=== PATIENT | male | born 1945 | race Caucasian/White ===

== ENCOUNTER 2020-07-12 12:37 | Observation (INO) ==
[2020-07-12] MEDS ORDERED: NORMAL SALINE 1,000 ML IV ONE ×3 (12:55→15:25)
[2020-07-12 13:17] LABS: Hematocrit 36.2 % (42.0-52.0); Hemoglobin 11.6 gm/dL (13.5-18.0); Mean Cell Volume 92.1 fl (78-100); Mean Corpuscular Hemoglobin 29.5 pg (27-31); Mean Platelet Volume 10.9 fl (8-11.3); Platelet Count 129 K/mm3 (150-450); Red Blood Count 3.93 M/mm3 (4.7-6.0); Red Cell Distribution Width 14.6 % (11.5-14.0); White Blood Count 8.1 K/mm3 (4.0-10.5)
[2020-07-12 13:19] LABS: Total Cells Counted 100
[2020-07-12 13:33] LABS: Troponin I Less than 0.017 ng/mL (0.00-0.10)
[2020-07-12 13:35] LABS: ALT 66 U/L (19-67); AST 69 U/L (0-48); Alkaline Phosphatase * 472 U/L (50-170); Anion Gap 13.5 mmol/L (6.8-13.8); BUN/Creatinine Ratio 23.6 (9.0-21.6); Bilirubin, Total 0.8 mg/dL (0.0-1.1); Blood Urea Nitrogen 30 mg/dL (6-23); Ca. Corrected For Albumin 9.3 mg/dL (8.4-10.2); Calcium * 8.8 mg/dL (7.9-10.9); Carbon Dioxide 24.6 mmol/L (24-32.6); Chloride 98 mmol/L (97-106); Glucose * 170 mg/dL (70-110); Lipase 221 U/L (73-393); Magnesium 1.8 mg/dL (1.2-2.8); Potassium 4.1 mmol/L (3.4-4.6); Sodium 132 mmol/L (132-142); TSH * 3.248 uIU/mL (0.358-3.74); Total Protein 6.2 gm/dL (6.2-8.2)
[2020-07-12 13:48] LABS: Atypical (Reactive) Lymph 6 % (0-2); Band 17 % (0-2.0); Lymphocyte 10 % (20-51); Monocyte 2 % (0-9); Neutrophil 65 % (42-75); Neutrophil # 5.3 K/mm3 (1.3-6.0)
[2020-07-12 13:50] LABS: Anisocytosis 2+; Platelet Estimate Normal (NORMAL)
[2020-07-12 15:40] LABS: Urine Bilirubin 1 mg/dl (NEGATIVE); Urine Blood Negative /ul (NEGATIVE); Urine Ketone Negative (NEGATIVE); Urine Nitrite Negative (NEGATIVE); Urine Protein Negative (NEGATIVE); Urine Specific Gravity 1.025 SP.GR. (1.005-1.030); Urine Urobilinogen Normal (NORMAL); Urine pH 5.5 pH (5.0-7.0)
[2020-07-12 16:01] LABS: Urine Appearance Cloudy (CLEAR); Urine Color Dark Yellow
[2020-07-12 16:03] LABS: Urine Mucus Moderate - 2+; Urine RBC TRACE /hpf (0-5); Urine WBC 0-5 /hpf (0-5)
[2020-07-12 16:04] LABS: Urine Bacteria TRACE
--- NOTE | 2020-07-12 16:04 | ERNOTE ---
Medical Problem HPI - Narrative Date of Service: 07/12/20 - General Chief Complaint: General Assessment Time Seen by Provider: 07/12/20 12:43 Source: patient, family Exam Limitations: no limitations - Immun/Allergies/Home Medications Immunizations: IMMUNIZATION HX Immunizations Up to Date Yes History of Influenza Vaccine Yes Hx Pneumococcal Vaccination Yes Allergies/Adverse Reactions: Allergies No Known Allergies Allergy (Unverified 07/12/20 12:56) Home Medications: HOME MEDICATIONS ALPRAZolam [Xanax] 0.5 mg PO HS 07/12/20 [Last Taken Unknown] Atorvastatin Calcium 40 mg PO DAILY 07/12/20 [Last Taken Unknown] Chlorpromazine HCl 25 mg PO TID PRN 07/12/20 [Last Taken Unknown] Digoxin [Digitek] 250 mcg PO DAILY 07/12/20 [Last Taken Unknown] Fluorouracil [Adrucil] 500 mg IV PRN 07/12/20 [Last Taken Unknown] Furosemide [Lasix] 40 mg PO DAILY 07/12/20 [Last Taken Unknown] Irinotecan HCl [Camptosar] 100 mg IV PRN 07/12/20 [Last Taken Unknown] Lisinopril [Zestril] 5 mg PO DAILY 07/12/20 [Last Taken Unknown] Metoprolol Tartrate [Lopressor] 25 mg PO BID 07/12/20 [Last Taken Unknown] Oxaliplatin [Eloxatin] 100 mg IV PRN 07/12/20 [Last Taken Unknown] Potassium Chloride [Klor-Con 10] 10 meq PO BID 07/12/20 [Last Taken Unknown] metFORMIN HCL [Metformin HCl] 500 mg PO BID 07/12/20 [Last Taken Unknown] - History of Present History Narrative: Patient presents to the ED for dehydration, low BP and an episode of unresponsiveness. He has metastatic pancreatic cancer. Treated last week at [facility] with chemotherapy. He had low BP at the cancer center but that improved. He hasn't been eating or drinking. He is nauseated. He was seated today and his head went back and he had an unresponive episode, no clear seizure activity. He then woke up. They called [facility] and were directed to the hospital. He denies pain right now. Is hypotensive. No CP or SOB., Timing: constant, getting worse Severity: severe Modifying Factors - (Improves): Present: other - nothing Modifying Factors - (Worsens): Present: other - nothing Review of Systems - Review of Systems Constitutional: Absent: fever EYE: Present: no symptoms reported ENT: Absent: sore throat Respiratory: Absent: shortness of breath Cardiology: Absent: chest pain Gastrointestinal/Abdominal: Present: See HPI Genitourinary: Present: See HPI All Other Systems: All systems neg except as marked Medical History (Last Reviewed 07/12/20 @ 15:57 by Yeison Perez MD) CHF (congestive heart failure) Cancer determined by pancreatic biopsy Cancer determined by pancreatic biopsy Diabetes Hypertension Normal colonoscopy Pancreatic cancer Surgical History: Surgical History (Last Reviewed 07/12/20 @ 15:57 by Yeison Perez MD) History of liver biopsy Pacemaker Family History: Family History (Last Reviewed 07/12/20 @ 15:57 by Yeison Perez MD) Brother Bone cancer Father Myocardial infarction Social History: (Last Reviewed 07/12/20 @ 15:57 by Yeison Perez MD) Social History: lives independently: Yes household members: spouse Tobacco: Smoking Status: Never smoker Alcohol: alcohol intake: former Alcohol type: beer alcohol intake frequency: holiday/special occasion Physical Exam - Physical Exam General Appearance: Present: alert, no apparent distress Head Exam: Present: normal inspection, no evidence of injury Eye Exam: Normal inspection: bilateral, PERRL: bilateral Ears, Nose, Throat: Present: normal ENT inspection Neck: Present: normal inspection Respiratory: Present: no respiratory distress, normal breath sounds, no accessory muscle use, lungs clear Cardiovascular/Chest: Present: regular rate, rhythm, normal peripheral pulses Gastrointestinal/Abdominal: Present: normal bowel sounds, nontender, soft Back Exam: Present: normal range of motion Extremity Exam: Present: normal inspection, normal range of motion Neurological Exam: Present: alert, no motor/sensory deficits, signals analyst II-XII nml as tested. Absent: motor weakness Skin Exam: Present: normal color, warm/dry Progress - Results and Orders Patient's Lab Results:: I have reviewed the patient's lab results. - Vital Signs Patient's Vital Signs:: I have reviewed the patient's vital signs. Vital Signs: Vital Signs 07/12/20 12:38 07/12/20 13:12 07/12/20 13:15 Temperature 36.3 C Pulse Rate 113 H 104 H 99 Respiratory Rate 16 22 H 17 Blood Pressure 61/37 L 81/50 L 77/52 L O2 Sat by Pulse Oximetry 98 96 95 07/12/20 13:26 07/12/20 13:37 07/12/20 14:15 Temperature Pulse Rate 120 H 101 H 97 Respiratory Rate 22 H 19 17 Blood Pressure 77/50 L 76/47 L 79/51 L O2 Sat by Pulse Oximetry 96 95 95 07/12/20 14:30 07/12/20 14:45 07/12/20 15:00 Temperature Pulse Rate 92 85 92 Respiratory Rate 17 16 12 Blood Pressure 95/57 96/56 100/62 O2 Sat by Pulse Oximetry 95 96 95 07/12/20 15:15 07/12/20 15:25 07/12/20 15:30 Temperature Pulse Rate 93 86 78 Respiratory Rate 14 12 Blood Pressure 92/56 109/67 O2 Sat by Pulse Oximetry 96 97 - EKG EKG #1 EKG read: Interp. by me EKG Comments: Paced rhythm, rate 102. Non-specific, no STEMI noted - X-Ray X-Ray #1 X-Ray: chest Interpretation: Interp. by me X-ray Comments: I personally reviewed CXR image as well as official radiology report - CT/Ultrasound CT/Ultrasound Narrative: I reviewed official radiology report for head CT. - Progress/Reassessment Chief Complaint: General Assessment Progress Note-Subjective: 07/12/20 16:01 2L NS given, still orthorstatic. Given this he will need hospitalization. I spoke with Dr Zaidi and discussed vitals and labs, she will admit. patient and family agreeable. Departure Clinical Impression: Dehydration, Hypotension, Orthostasis, Pancreatic cancer - Departure Disposition: Still a patient Condition: Fair Referrals: Salma Cadet DO [Primary Care Provider] -
[2020-07-12] MEDS ORDERED: NORMAL SALINE 1,000 ML IV PRN (18:02)
[2020-07-12] MEDS ORDERED: ONDANSETRON HCL 8 MG TABLET PO PRN (18:03)
[2020-07-12] MEDS ORDERED: PROCHLORPERAZINE MALEATE 10 MG TABLET PO PRN (18:03)
[2020-07-12] MEDS ORDERED: CHLORPROMAZINE HCL 50 MG PO PRN (18:03)
--- NOTE | 2020-07-12 18:17 | PN ---
Subjective - Date and Time Seen Date: 07/12/20 Time: 16:30 Subjective Narrative: Patient with a PMHx of atrial fibrillation with pacemaker was recently diagnosed with metastatic pancreatic cancer. He was losing weight, 30 pounds over about 4-5 months) and had abnormal liver labs, and subsequent imaging revealed pancreatic cancer with mets to the liver and lung. He started chemo treatment through a cancer treatment center in [place] last week. He was at home eating breakfast, and had an episode of unresponsiveness and jerking of the extremities according to his . He does not remember the event. He was able to fausto up and down stairs yesterday. He had problems with dehydration and was told to increase fluid intake, but has not been able to do so. In the ED, he was hypotensive with systolic BP in the 60's. Lactate was initially 4.3. No significant abnormalities on CBC, aside from mild anemia with hemoglobin of 11.6 and mild thrombocytopenia with platelets of 126. Normal creatinine of 1.27, no signs of infection on urine, and COVID was negative. BP improved after 2L NS. He is admitted for gentle hydration and monitoring for resolution of symptoms. Objective - Review of Systems Generalized/Overall Review: Reports: Weight loss Respiratory: Denies: Shortness of Breath Cardiac: Denies: Chest Pain, Edema Abdominal: Reports: Other - hiccups. Denies: Abdominal Pain Genitourinary Symptoms: Reports: No Symptoms Reported - Vitals Vitals: Last Vital Signs Temp 36.5 C 07/12/20 17:28 Pulse 84 07/12/20 17:28 Resp 12 07/12/20 17:28 BP 118/64 07/12/20 17:28 Pulse Ox 96 07/12/20 17:28 - Abnormal Lab Findings Abnormal Lab Findings: Abnormal Lab Results 07/12/20 07/12/20 07/12/20 Range/Units 13:07 13:07 13:07 RBC 3.93 L (4.7-6.0) M/mm3 Hgb 11.6 L (13.5-18.0) gm/dL Hct 36.2 L (42.0-52.0) % RDW 14.6 H (11.5-14.0) % Plt Count 129 L (150-450) K/mm3 Band Neuts % (Manual) 17 H (0-2.0) % Lymphocytes % (Manual) 10 L (20-51) % Lymphocytes # (Manual) 0.8 L (1.5-3.5) k/mm3 Atypic/Reactive Lymphs 6 H (0-2) % BUN 30 H (6-23) mg/dL Est GFR (Non-Af Amer) 59 L D (60-130) mL/min BUN/Creatinine Ratio 23.6 H (9.0-21.6) Random Glucose 170 H (70-110) mg/dL Lactic Acid, Venous 4.3 H* (0.4-2.0) mmol/L AST 69 H (0-48) U/L Alkaline Phosphatase 472 H (50-170) U/L Albumin 3.0 L (3.4-5.0) gm/dl Urine Bilirubin (NEGATIVE) mg/dl Hyaline Casts (NONE) /LPF Urine Mucus (NONE) 07/12/20 07/12/20 Range/Units 15:27 15:50 RBC (4.7-6.0) M/mm3 Hgb (13.5-18.0) gm/dL Hct (42.0-52.0) % RDW (11.5-14.0) % Plt Count (150-450) K/mm3 Band Neuts % (Manual) (0-2.0) % Lymphocytes % (Manual) (20-51) % Lymphocytes # (Manual) (1.5-3.5) k/mm3 Atypic/Reactive Lymphs (0-2) % BUN (6-23) mg/dL Est GFR (Non-Af Amer) (60-130) mL/min BUN/Creatinine Ratio (9.0-21.6) Random Glucose (70-110) mg/dL Lactic Acid, Venous 2.6 H* (0.4-2.0) mmol/L AST (0-48) U/L Alkaline Phosphatase (50-170) U/L Albumin (3.4-5.0) gm/dl Urine Bilirubin 1 H (NEGATIVE) mg/dl Hyaline Casts 5-10 H (NONE) /LPF Urine Mucus Moderate - 2+ H (NONE) - Exam Constitutional: Present: Alert, Cooperative, No distress Respiratory: Present: no respiratory distress Cardiovascular/Chest: Present: regular rate, rhythm Eye contact: Present: cooperative, good eye contact Assessment/Plan Plan Narrative: BP is improving with fluids. His presentation is felt to be secondary to dehydration. Negative head CT. He received 3 L NS in the ED, and will give one additional L at maintenance rate tonight. His reports he was told to increase his fluid intake, because he also needed fluids for hypotension prior to his chemo treatment. He hasn't been able to follow through with drinking more fluids. Will ask PT to evaluate in the morning, and if he is comfortable ambulating and does not have recurrent hypotension, will DC tomorrow. 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 His reports his cancer is stage IV. Jasson is not sure of his prognosis, and was in denial that his weight loss could have been due to cancer. She is trying to keep him positive, and is not sure that he would want to know if his prognosis was poor. When asked about his code status, he was not sure, and stated he will need to discuss that with family. He just started chemo treatment last week for his stage IV pancreatic cancer. 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 Centeno recently DC'd warfarin, and reported if his health declined, may also DC digoxin. (5) Dehydration Problem: Acute (6) Hypertension Problem: Chronic Narrative: will hold antihypertensives until BP is consistently greater than 140/90
[2020-07-12] MEDS: metFORMIN HCL 500 MG TABLET PO SCH (20:10)
[2020-07-12] MEDS ORDERED: ALPRAZolam 0.5 MG TABLET PO SCH (21:00)
[2020-07-13 06:38] LABS: Hematocrit 30.2 % (42.0-52.0); Hemoglobin 9.9 gm/dL (13.5-18.0); Mean Cell Volume 90.1 fl (78-100); Mean Corpuscular Hemoglobin 29.6 pg (27-31); Mean Corpuscular Hgb Conc 32.8 g/dl (32-36); Mean Platelet Volume 10.1 fl (8-11.3); Platelet Count 101 K/mm3 (150-450); Red Blood Count 3.35 M/mm3 (4.7-6.0); Red Cell Distribution Width 14.5 % (11.5-14.0); White Blood Count 5.4 K/mm3 (4.0-10.5)
[2020-07-13 06:43] LABS: Albumin * 2.5 gm/dl (3.4-5.0); Anion Gap 16.8 mmol/L (6.8-13.8); BUN/Creatinine Ratio 25.3 (9.0-21.6); Bilirubin, Total 0.8 mg/dL (0.0-1.1); Ca. Corrected For Albumin 9.1 mg/dL (8.4-10.2); Calcium * 8.2 mg/dL (7.9-10.9); Potassium 3.8 mmol/L (3.4-4.6); Total Protein 5.3 gm/dL (6.2-8.2)
[2020-07-13 06:44] LABS: Total Cells Counted 100
[2020-07-13 07:33] LABS: Atypical (Reactive) Lymph 2 % (0-2); Eosinophil 2 % (0-3); Immature Granulocyte 4 (0-1); Lymphocyte 17 % (20-51); Monocyte 4 % (0-9)
[2020-07-13 07:34] LABS: Anisocytosis 1+; Band 7 % (0-2.0); Neutrophil 64 % (42-75); Neutrophil # 3.5 K/mm3 (1.3-6.0); Toxic Granulation Trace
--- NOTE | 2020-07-13 08:15 | HP ---
Chief Complaint - Chief Complaint Date of Service: 07/13/20 Time of Service: 08:10 Chief Complaint: seizure like activity History of Present Illness: Patient with a PMHx of atrial fibrillation with pacemaker was recently diagnosed with metastatic pancreatic cancer. He was losing weight, 30 pounds over about 4-5 months) and had abnormal liver labs, and subsequent imaging revealed pancreatic cancer with mets to the liver and lung. He started chemo treatment through a cancer treatment center in [place] last week. He was at home eating breakfast, and had an episode of unresponsiveness and jerking of the extremities according to his . He does not remember the event. He was able to fausto up and down stairs yesterday. He had problems with dehydration and was told to increase fluid intake, but has not been able to do so. In the ED, he was hypotensive with systolic BP in the 60's. Lactate was initially 4.3. No significant abnormalities on CBC, aside from mild anemia with hemoglobin of 11.6 and mild thrombocytopenia with platelets of 126. Normal creatinine of 1.27, no signs of infection on urine, and COVID was negative. BP improved after 2L NS. He is admitted for gentle hydration and monitoring for resolution of symptoms. Medical History (Last Reviewed 07/12/20 @ 15:57 by Yeison Perez MD) CHF (congestive heart failure) Cancer determined by pancreatic biopsy Cancer determined by pancreatic biopsy Diabetes Hypertension Normal colonoscopy Pancreatic cancer Surgical History: Surgical History (Last Reviewed 07/12/20 @ 15:57 by Yeison Perez MD) History of liver biopsy Pacemaker Family History: Family History (Last Reviewed 07/12/20 @ 15:57 by Yeison Perez MD) Brother Bone cancer Father Myocardial infarction Social History: (Last Reviewed 07/12/20 @ 15:57 by Yeison Perez MD) Social History: lives independently: Yes household members: spouse Tobacco: Smoking Status: Never smoker Alcohol: alcohol intake: former Alcohol type: beer alcohol intake frequency: holiday/special occasion Review Of Systems (GEN) - Review of Systems Generalized/Overall Review: Present: Weakness, Weight loss Respiratory: Absent: Shortness of Breath Cardiac: Absent: Chest Pain, Edema Abdominal: Present: Other - hiccups. Absent: Abdominal Pain Genitourinary: Present: No Symptoms Reported Immunizations: IMMUNIZATION HX Immunizations Up to Date Yes History of Influenza Vaccine Yes Hx Pneumococcal Vaccination Yes Allergies/Adverse Reactions: Allergies Allergy/AdvReac Type Severity Reaction Status Date / Time No Known Allergies Allergy Unverified 07/12/20 12:56 Home Medications: HOME MEDICATIONS ALPRAZolam [Xanax] 0.5 mg PO HS 07/12/20 [Last Taken Unknown] Atorvastatin Calcium 40 mg PO DAILY 07/12/20 [Last Taken Unknown] Chlorpromazine HCl 25 mg PO TID PRN 07/12/20 [Last Taken Unknown] Digoxin [Digitek] 250 mcg PO DAILY 07/12/20 [Last Taken Unknown] Fluorouracil [Adrucil] 500 mg IV PRN 07/12/20 [Last Taken Unknown] Furosemide [Lasix] 40 mg PO DAILY 07/12/20 [Last Taken Unknown] Irinotecan HCl [Camptosar] 100 mg IV PRN 07/12/20 [Last Taken Unknown] Lisinopril [Zestril] 5 mg PO DAILY 07/12/20 [Last Taken Unknown] Metoprolol Tartrate [Lopressor] 25 mg PO BID 07/12/20 [Last Taken Unknown] Ondansetron HCl [Zofran] 8 mg PO TID PRN 07/12/20 [Last Taken Unknown] Oxaliplatin [Eloxatin] 100 mg IV PRN 07/12/20 [Last Taken Unknown] Potassium Chloride [Klor-Con 10] 10 meq PO BID 07/12/20 [Last Taken Unknown] Prochlorperazine Maleate [Compazine] 10 mg PO QID PRN 07/12/20 [Last Taken Unknown] metFORMIN HCL [Metformin HCl] 500 mg PO BID 07/12/20 [Last Taken Unknown] Exam - Exam Vital Signs: Vital Signs - Last Taken Temp 37.2 C 07/13/20 06:43 Pulse 115 H 07/13/20 07:44 Resp 12 07/13/20 06:43 BP 116/71 07/13/20 06:43 Pulse Ox 96 07/13/20 06:43 Constitutional: Present: Alert, Cooperative, No distress ENT Exam: Present: hard of hearing Respiratory: Present: no respiratory distress Cardiovascular/Chest: Present: regular rate, rhythm Eye contact: Present: cooperative, good eye contact Diagnostic Studies: Abnormal Lab Results 07/12/20 07/12/20 07/12/20 Range/Units 13:07 13:07 13:07 RBC 3.93 L (4.7-6.0) M/mm3 Hgb 11.6 L (13.5-18.0) gm/dL Hct 36.2 L (42.0-52.0) % RDW 14.6 H (11.5-14.0) % Plt Count 129 L (150-450) K/mm3 Band Neuts % (Manual) 17 H (0-2.0) % Lymphocytes % (Manual) 10 L (20-51) % Immature Granulocytes (0-1) Lymphocytes # (Manual) 0.8 L (1.5-3.5) k/mm3 Atypic/Reactive Lymphs 6 H (0-2) % Anion Gap (6.8-13.8) mmol/L BUN 30 H (6-23) mg/dL Est GFR (Non-Af Amer) 59 L D (60-130) mL/min BUN/Creatinine Ratio 23.6 H (9.0-21.6) Random Glucose 170 H (70-110) mg/dL Lactic Acid, Venous 4.3 H* (0.4-2.0) mmol/L AST 69 H (0-48) U/L Alkaline Phosphatase 472 H (50-170) U/L Total Protein (6.2-8.2) gm/dL Albumin 3.0 L (3.4-5.0) gm/dl Urine Bilirubin (NEGATIVE) mg/dl Hyaline Casts (NONE) /LPF Urine Mucus (NONE) 07/12/20 07/12/20 07/13/20 Range/Units 15:27 15:50 06:27 RBC 3.35 L (4.7-6.0) M/mm3 Hgb 9.9 L (13.5-18.0) gm/dL Hct 30.2 L (42.0-52.0) % RDW 14.5 H (11.5-14.0) % Plt Count 101 L (150-450) K/mm3 Band Neuts % (Manual) 7 H (0-2.0) % Lymphocytes % (Manual) 17 L (20-51) % Immature Granulocytes 4 H (0-1) Lymphocytes # (Manual) 0.9 L (1.5-3.5) k/mm3 Atypic/Reactive Lymphs (0-2) % Anion Gap (6.8-13.8) mmol/L BUN (6-23) mg/dL Est GFR (Non-Af Amer) (60-130) mL/min BUN/Creatinine Ratio (9.0-21.6) Random Glucose (70-110) mg/dL Lactic Acid, Venous 2.6 H* (0.4-2.0) mmol/L AST (0-48) U/L Alkaline Phosphatase (50-170) U/L Total Protein (6.2-8.2) gm/dL Albumin (3.4-5.0) gm/dl Urine Bilirubin 1 H (NEGATIVE) mg/dl Hyaline Casts 5-10 H (NONE) /LPF Urine Mucus Moderate - 2+ H (NONE) 07/13/20 Range/Units 06:27 RBC (4.7-6.0) M/mm3 Hgb (13.5-18.0) gm/dL Hct (42.0-52.0) % RDW (11.5-14.0) % Plt Count (150-450) K/mm3 Band Neuts % (Manual) (0-2.0) % Lymphocytes % (Manual) (20-51) % Immature Granulocytes (0-1) Lymphocytes # (Manual) (1.5-3.5) k/mm3 Atypic/Reactive Lymphs (0-2) % Anion Gap 16.8 H (6.8-13.8) mmol/L BUN (6-23) mg/dL Est GFR (Non-Af Amer) (60-130) mL/min BUN/Creatinine Ratio 25.3 H (9.0-21.6) Random Glucose 130 H (70-110) mg/dL Lactic Acid, Venous (0.4-2.0) mmol/L AST 63 H (0-48) U/L Alkaline Phosphatase 421 H (50-170) U/L Total Protein 5.3 L (6.2-8.2) gm/dL Albumin 2.5 L (3.4-5.0) gm/dl Urine Bilirubin (NEGATIVE) mg/dl Hyaline Casts (NONE) /LPF Urine Mucus (NONE) Laboratory Results WBC 5.4 K/mm3 (4.0-10.5) D 07/13/20 06:27 RBC 3.35 M/mm3 (4.7-6.0) L 07/13/20 06:27 Hgb 9.9 gm/dL (13.5-18.0) L 07/13/20 06:27 Hct 30.2 % (42.0-52.0) L 07/13/20 06:27 MCV 90.1 fl (78-100) 07/13/20 06:27 MCH 29.6 pg (27-31) 07/13/20 06:27 MCHC 32.8 g/dl (32-36) 07/13/20 06:27 RDW 14.5 % (11.5-14.0) H 07/13/20 06:27 Plt Count 101 K/mm3 (150-450) L 07/13/20 06:27 MPV 10.1 fl (8-11.3) 07/13/20 06:27 Neutrophils % (Manual) 64 % (42-75) 07/13/20 06:27 Band Neuts % (Manual) 7 % (0-2.0) H 07/13/20 06:27 Lymphocytes % (Manual) 17 % (20-51) L 07/13/20 06:27 Monocytes % (Manual) 4 % (0-9) 07/13/20 06:27 Eosinophils % (Manual) 2 % (0-3) 07/13/20 06:27 Immature Granulocytes 4 (0-1) H 07/13/20 06:27 Neutrophils # (Manual) 3.5 K/mm3 (1.3-6.0) 07/13/20 06:27 Lymphocytes # (Manual) 0.9 k/mm3 (1.5-3.5) L 07/13/20 06:27 Monocytes # (Manual) 0.2 k/mm3 (0.0-1.0) 07/13/20 06:27 Eosinophils # (Manual) 0.1 k/mm3 (0.0-0.7) 07/13/20 06:27 Atypic/Reactive Lymphs 2 % (0-2) 07/13/20 06:27 Toxic Granulation Trace 07/13/20 06:27 Toxic Vacuolation Trace 07/13/20 06:27 Platelet Estimate Normal (NORMAL) 07/12/20 13:07 Anisocytosis 1+ 07/13/20 06:27 Sodium 137 mmol/L (132-142) 07/13/20 06:27 Plasma Sodium 137 mmol/L (130-142) 07/13/20 06:27 Potassium 3.8 mmol/L (3.4-4.6) 07/13/20 06:27 Chloride 100 mmol/L (97-106) 07/13/20 06:27 Carbon Dioxide 24.0 mmol/L (24-32.6) 07/13/20 06:27 Anion Gap 16.8 mmol/L (6.8-13.8) H 07/13/20 06:27 BUN 19 mg/dL (6-23) 07/13/20 06:27 Creatinine 0.75 mg/dL (0.4-1.4) 07/13/20 06:27 Est GFR (Non-Af Amer) 108 mL/min (60-130) D 07/13/20 06:27 BUN/Creatinine Ratio 25.3 (9.0-21.6) H 07/13/20 06:27 Random Glucose 130 mg/dL (70-110) H 07/13/20 06:27 Lactic Acid, Venous 2.6 mmol/L (0.4-2.0) H* 07/12/20 15:50 Calcium 8.2 mg/dL (7.9-10.9) 07/13/20 06:27 Calcium Adj for Albumin 9.1 mg/dL (8.4-10.2) 07/13/20 06:27 Magnesium 1.8 mg/dL (1.2-2.8) 07/12/20 13:07 Total Bilirubin 0.8 mg/dL (0.0-1.1) 07/13/20 06:27 AST 63 U/L (0-48) H 07/13/20 06:27 ALT 55 U/L (19-67) 07/13/20 06:27 Alkaline Phosphatase 421 U/L (50-170) H 07/13/20 06:27 Troponin I Less than 0.017 ng/mL (0.00-0.10) 07/12/20 13:07 Total Protein 5.3 gm/dL (6.2-8.2) L 07/13/20 06:27 Albumin 2.5 gm/dl (3.4-5.0) L 07/13/20 06:27 Lipase 221 U/L (73-393) 07/12/20 13:07 TSH 3.248 uIU/mL (0.358-3.74) 07/12/20 13:07 Urine Color Dark yellow 07/12/20 15: Urine Appearance Cloudy (CLEAR) 07/12/20 15:27 Urine pH 5.5 pH (5.0-7.0) 07/12/20 15: Ur Specific [place] 1.025 SP.GR. (1.005-1.030) 07/12/20 15:27 Urine Protein Negative mg/dL (NEGATIVE) 07/12/20 15:27 Urine Glucose (UA) Negative mg/dL (NEGATIVE) 07/12/20 15: Urine Ketones Negative mg/dL (NEGATIVE) 07/12/20 15: Urine Blood Negative /ul (NEGATIVE) 07/12/20 15: Urine Nitrate Negative (NEGATIVE) 07/12/20 15:27 Urine Bilirubin 1 mg/dl (NEGATIVE) H 07/12/20 15:27 Urine Urobilinogen Normal EU/dl (NORMAL) 07/12/20 15:27 Ur Leukocyte Esterase Negative /ul (NEGATIVE) 07/12/20 15:27 Urine RBC Trace /hpf (0-5) 07/12/20 15:27 Urine WBC 0-5 /hpf (0-5) 07/12/20 15:27 Ur Epithelial Cells Trace /hpf (0-5) 07/12/20 15:27 Uric Acid Crystals Trace /hpf (NONE) 07/12/20 15:27 Urine Bacteria Trace (NONE) 07/12/20 15:27 Hyaline Casts 5-10 /LPF (NONE) H 07/12/20 15:27 Urine Mucus Moderate - 2+ (NONE) H 07/12/20 15:27 Urine Culture Comments No culture indicated 07/12/20 15: SARS-CoV-2 (PCR) Not detected (NotDetected) 07/12/20 15:32 Assessment/Plan - Narrative Narrative: this note is written to include family hx, social hx, etc that is required with an H&P. A progress note template was inadvertently used as the H&P on the day of admission. An additional note will be done today to discuss today's findings and treatment plan. BP is improving with fluids. His presentation is felt to be secondary to dehydration. Negative head CT. He received 3 L NS in the ED, and will give one additional L at maintenance rate tonight. His reports he was told to increase his fluid intake, because he also needed fluids for hypotension prior to his chemo treatment. He hasn't been able to follow through with drinking more fluids. Will ask PT to evaluate. 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
[2020-07-13] MEDS: metFORMIN HCL 500 MG TABLET PO SCH (08:38)
[2020-07-13] MEDS ORDERED: METOPROLOL TARTRATE 25 MG TABLET PO SCH (09:00)
[2020-07-13] MEDS ORDERED: DIGOXIN 0.125 MG TABLET PO SCH (09:00)
--- NOTE | 2020-07-13 11:00 | DS ---
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 He was losing weight, 30 pounds over about 4-5 months) and had abnormal liver labs, and subsequent imaging revealed pancreatic cancer with mets to the liver and lung. He started chemo treatment through a cancer treatment center in [place] last week. He was at home eating breakfast, and had an episode of unresponsiveness and jerking of the extremities according to his . He does not remember the event. He was able to fausto up and down stairs yesterday. He had problems with dehydration and was told to increase fluid intake, but has not been able to do so. In the ED, he was hypotensive with systolic BP in the 60's. Lactate was initially 4.3, resolved with fluid. No significant abnormalities on CBC, aside from mild anemia with hemoglobin of 11.6 and mild thrombocytopenia with platelets of 126. Normal creatinine of 1.27, no signs of infection on urine, and COVID was negative. BP improved after 2L NS. He is admitted for gentle hydration and monitoring for resolution of symptoms. BP is improving with fluids. His presentation is felt to be secondary to dehydration. Negative head CT. He received 3 L NS in the ED, and received one additional L at maintenance rate overnight. His reports he was told to increase his fluid intake, because he also needed fluids for hypotension prior to his chemo treatment. He hadn't been able to follow through with drinking more fluids. His spoke with me outside the room. His reports his cancer is stage IV. Jasson is not sure of his prognosis, and was in denial that his weight loss could have been due to cancer. She is trying to keep him positive, and is not s ure that he would want to know if his prognosis was poor. When asked about his code status, he was not sure, and stated he will need to discuss that with family. He just started chemo treatment last week for his stage IV pancreatic cancer. He received 4 L NS, and felt better the following morning. He was able to work with PT. He felt comfortable leaving on the day of DC. His home digoxin and metoprolol were restarted, but his BP was still a bit low on the day of DC, so will not yet restart his lisinopril. Procedures Performed: none Results and Findings: Lab Pending Results 07/12/20 13:07: WBC 8.1, RBC 3.93 L, Hgb 11.6 L, Hct 36.2 L, MCV 92.1, MCH 29.5, MCHC 32.0, RDW 14.6 H, Plt Count 129 L, MPV 10.9, Neutrophils % (Manual) 65, Band Neuts % (Manual) 17 H, Lymphocytes % (Manual) 10 L, Monocytes % (Manual) 2, Neutrophils # (Manual) 5.3, Lymphocytes # (Manual) 0.8 L, Monocytes # (Manual) 0.2, Atypic/Reactive Lymphs 6 H, Platelet Estimate Normal, Anisocytosis 2+ 07/12/20 13:07: Sodium 132, Plasma Sodium 133, Potassium 4.1 D, Chloride 98, Carbon Dioxide 24.6, Anion Gap 13.5, BUN 30 H, Creatinine 1.27, Est GFR (Non-Af Amer) 59 L D, BUN/Creatinine Ratio 23.6 H, Random Glucose 170 H, Calcium 8.8, Calcium Adj for Albumin 9.3, Magnesium 1.8, Total Bilirubin 0.8, AST 69 H, ALT 66, Alkaline Phosphatase 472 H, Troponin I Less than 0.017, Total Protein 6.2, Albumin 3.0 L, Lipase 221, TSH 3.248 07/12/20 13:07: Lactic Acid, Venous 4.3 H* 07/12/20 15:27: Urine Color Dark yellow, Urine Appearance Cloudy, Urine pH 5.5, Ur Specific [place] 1.025, Urine Protein Negative, Urine Glucose (UA) Negative, Urine Ketones Negative, Urine Blood Negative, Urine Nitrate Negative, Urine Bilirubin 1 H, Urine Urobilinogen Normal, Ur Leukocyte Esterase Negative, Urine RBC Trace, Urine WBC 0-5, Ur Epithelial Cells Trace, Uric Acid Crystals Trace, Urine Bacteria Trace, Hyaline Casts 5-10 H, Urine Mucus Moderate - 2+ H, Urine Culture Comments No culture indicated 07/12/20 15:32: SARS-CoV-2 (PCR) Not detected 07/12/20 15:50: Lactic Acid, Venous 2.6 H* 07/13/20 06:27: WBC 5.4 D, RBC 3.35 L, Hgb 9.9 L, Hct 30.2 L, MCV 90.1, MCH 29.6, MCHC 32.8, RDW 14.5 H, Plt Count 101 L, MPV 10.1, Neutrophils % (Manual) 64, Band Neuts % (Manual) 7 H, Lymphocytes % (Manual) 17 L, Monocytes % (Manual) 4, Eosinophils % (Manual) 2, Immature Granulocytes 4 H, Neutrophils # (Manual) 3 .5, Lymphocytes # (Manual) 0.9 L, Monocytes # (Manual) 0.2, Eosinophils # (Manual) 0.1, Atypic/Reactive Lymphs 2, Toxic Granulation Trace, Toxic Vacuolation Trace, Anisocytosis 1+ 07/13/20 06:27: Sodium 137, Plasma Sodium 137, Potassium 3.8, Chloride 100, Carbon Dioxide 24.0, Anion Gap 16.8 H, BUN 19, Creatinine 0.75, Est GFR (Non-Af Amer) 108 D, BUN/Creatinine Ratio 25.3 H, Random Glucose 130 H, Calcium 8.2, Calcium Adj for Albumin 9.1, Total Bilirubin 0.8, AST 63 H, ALT 55, Alkaline Phosphatase 421 H, Total Protein 5.3 L, Albumin 2.5 L Discharge Location: Home Disposition: Home self-care Condition: Fair Discharge Activity: Activity as tolerated Discharge Diet: General/regular food Referrals: Salma Cadet DO [Primary Care Provider] - Two Weeks Complete Home Medications List: Complete Home Medication List: ALPRAZolam [Xanax] 0.5 mg PO HS 07/12/20 Atorvastatin Calcium 40 mg PO DAILY 07/12/20 Chlorpromazine HCl 25 mg PO TID PRN 07/12/20 Digoxin [Digitek] 250 mcg PO DAILY 07/12/20 Fluorouracil [Adrucil] 500 mg IV PRN 07/12/20 Furosemide [Lasix] 40 mg PO DAILY 07/12/20 Irinotecan HCl [Camptosar] 100 mg IV PRN 07/12/20 Lisinopril [Zestril] 5 mg PO DAILY 07/12/20 Metoprolol Tartrate [Lopressor] 25 mg PO BID 07/12/20 Ondansetron HCl [Zofran] 8 mg PO TID PRN 07/12/20 Oxaliplatin [Eloxatin] 100 mg IV PRN 07/12/20 Potassium Chloride [Klor-Con 10] 10 meq PO BID 07/12/20 Prochlorperazine Maleate [Compazine] 10 mg PO QID PRN 07/12/20 metFORMIN HCL [Metformin HCl] 500 mg PO BID 07/12/20 Digoxin [Lanoxin] 0.25 mg PO DAILY tab 07/13/20 Physical Examination - Exam Vital Signs: Vital Signs - Last Taken Temp 37.2 C 07/13/20 10:44 Pulse 87 07/13/20 10:44 Resp 16 07/13/20 10:44 BP 95/59 07/13/20 10:44 Pulse Ox 97 07/13/20 10:44 O2 Oxygen Delivery Method Room Air Constitutional: Present: Alert, Cooperative, No distress Respiratory: Present: normal breath sounds Cardiovascular/Chest: Present: regular rate, rhythm, systolic murmur Abdomen: Present: soft Extremity: Absent: lower extremity edema Eye contact: Present: cooperative, good eye contact
[2020-07-13 11:50] VITALS: BP 99/58
== END 2020-07-13 12:43 | disposition home or self-care (01) ==
LOC: MS 12:37 → ER 12:37 → MS 17:20
PROVIDERS: ADMIT Family Medicine; ATTEND Family Medicine
DX: I95.9 Hypotension, unspecified; C78.00 Secondary malignant neoplasm of unspecified lung; Z79.01 Long term (current) use of anticoagulants; I10 Essential (primary) hypertension; E86.0 Dehydration; I48.91 Unspecified atrial fibrillation; C25.9 Malignant neoplasm of pancreas, unspecified; Z95.0 Presence of cardiac pacemaker; C78.7 Secondary malignant neoplasm of liver and intrahepatic bile duct